=== PATIENT | male | born 1995 | race Caucasian/White ===

== ENCOUNTER 2020-12-24 14:46 | Emergency (ER) | payer SELFPAY ==
[~2020-12-24] VITALS: Ht 185.4 cm; Wt 78.3 kg
[2020-12-24 16:05] LABS: BASO % 0 % (0-3); EOS # 0.1 x10^3/uL (0.0-0.7); EOS % 1 % (0-3); HEMATOCRIT 44.3 % (39.0-53.0); HEMOGLOBIN 14.8 g/dL (13.0-17.5); LYMPH # 1.1 x10^3/uL (1.0-4.8); LYMPH % 14 % (24-48); MEAN CORPUSCULAR HEMOGLOBIN 31 pg (25-35); MEAN CORPUSCULAR HGB CONC 34 g/dL (31-37); MEAN CORPUSCULAR VOLUME 94 fL (79-100); MONO # 0.8 x10^3/uL (0.0-1.1); MONO % 10 % (0-9); NEUT # 6.1 x10^3uL (1.8-7.7); NEUT % 75 % (31-73); PLATELET COUNT 222 x10^3/uL (140-400); RED BLOOD COUNT 4.74 x10^6/uL (4.30-5.70); RED CELL DISTRIBUTION WIDTH 13.1 % (11.5-14.5); WHITE BLOOD COUNT 8.2 x10^3/uL (4.0-11.0)
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
[2020-12-24 16:10] LABS: CALCIUM 9.5 mg/dL (8.5-10.1); CREATININE 0.9 mg/dL (0.7-1.3); GFR 101.2; POTASSIUM 3.6 mmol/L (3.5-5.1)
--- NOTE | 2020-12-24 16:14 | RAD ---
Exam: CT abdomen and pelvis without contrast INDICATION: Left-sided abdominal pain TECHNIQUE: Sequential axial images through the abdomen and pelvis obtained without IV contrast. Sagit len and coronal reformatted images were reconstructed from the axial data and reviewed. Comparisons: None FINDINGS: Heart size is normal. No pericardial effusion. Visualized lung bases are clear. No pleural effusion. Evaluation of the solid organs limited secondary to noncontrast technique. Liver, spleen, pancreas, gallbladder and adrenals are unremarkable. No perinephric inflammation or hydronephrosis. No renal or ureteral calculi are identified. Bladder is distended and appears thin-walled. Prostate is not enlarged. Large and small bowel are unremarkable. Appendix is normal. No free intra-abdominal air or fluid. No obstruction. Abdominal aorta has a normal course and caliber. No enlarged intra-abdominal lymph nodes are identified. No suspicious osseous lesions or acute fractures. No acute process identified within the abdomen or p evan. IMPRESSION: No acute process identified within the abdomen or pelvis. Exposure: One or more of the following in the visualized dose reduction techniques were utilized for this examination: 1. Automated exposure control 2. Adjustment of the MA and/or KV according to patient size 3. Use of iterative of reconstructive technique Electronically signed by: Birgit Tomas MD (12/24/2020 4:11 PM) [facility]
[2020-12-24 16:56] VITALS: BP 120/89
[2020-12-24 17:09] LABS: BARBITURATES NEG (NEG); BENZODIAZEPINES NEG (NEG); CANNABINOIDS POS (NEG); COCAINE POS (NEG); METHADONE NEG (NEG); OPIATES NEG (NEG); PHENCYCLIDINE NEG (NEG)
[2020-12-24 17:16] LABS: AMPHETAMINE/METHAMPHETAMINE POS (NEG)
[2020-12-24 17:41] LABS: CLARITY,URINE CLEAR; COLOR,URINE AMBER; GLUCOSE,URINE NEG (NEG)
[2020-12-24 17:42] LABS: BACTERIA,URINE 0 /HPF (0-FEW); BILIRUBIN,URINE SMALL (NEG); NITRITE,URINE NEG (NEG); RBC,URINE 0 /HPF (0-2); WBC,URINE 0 /HPF (0-4)
== END 2020-12-24 17:28 | disposition home or self-care (01) ==
LOC: ER 14:46
DX: Z71.1 Person with feared health complaint in whom no diagnosis is made (principal); B83.9 Helminthiasis, unspecified; F15.10 Other stimulant abuse, uncomplicated; R10.32 Left lower quadrant pain; Z88.5 Allergy status to narcotic agent
CPT/HCPCS: 36415; 74176; 80048; 80307; 81001; 85025; 99284

== ENCOUNTER 2021-12-09 18:30 | Emergency (ER) | payer SELFPAY ==
[~2021-12-09] VITALS: Ht 193 cm; Wt 80.0 kg
[2021-12-09 18:50] VITALS: BP 143/85
[2021-12-09] MEDS ORDERED: SULF1TAB24 PO (19:40)
--- NOTE | 2021-12-09 19:41 | PHYS DOC ---
Past History Past Medical History: No Pertinent History (ISAIAH ANGELES APRN) Past Surgical History: Other Additional Past Surgical Histo: lung, heart and spine surgery from [facility] in 2016 (ISAIAH ANGELES APRN) Alcohol Use: None (ISAIAH ANGELES APRN) General Adult EDM: Chief Complaint: EARACHE/EAR PAIN HPI: HPI: Patient is a 26-year-old male who presents with abscess behind his right ear. Patient states it started about 3 days ago. Patient reports tenderness to his ear and down the side of his neck. Denies taking anything for pain at home. Afebrile. Denies medical history. (ISAIAH ANGELES APRN) Review of Systems: Review of Systems: ROS At least 10 ROS systems have been reviewed and are negative except as documented in the HPI. General: Negative except as outlined in HPI above. Skin: Negative except as outlined in HPI above. HEENT: Negative except as outlined in HPI above. Neck: Negative except as outlined in HPI above. Respiratory: Negative except as outlined in HPI above.. Cardiovascular: Negative except as outlined in HPI above. Abdomen: Negative except as outlined in HPI above. : Negative except as outlined in HPI above. Back/MSK: Negative except as outlined in HPI above. Neuro: Negative except as outlined in HPI above. Psych: Negative except as outlined in HPI above. (ISAIAH ANGELES APRN) Allergies: Allergies: Allergies Coded Allergies Type Severity Reaction Last Updated Verified morphine Allergy Unknown 12/09/21 Yes (ISAIAH ANGELES APRN) Physical Exam: PE: Constitutional: Well developed, well nourished, no acute distress, non-toxic appearance. [] HENT: Normocephalic, atraumatic, bilateral external ears normal, oropharynx moist, no oral exudates, nose normal. [] Eyes: PERRLA, EOMI, conjunctiva normal, no discharge. [] Neck: Normal range of motion, no tenderness, supple, no stridor. [] Cardiovascular:Heart rate regular rhythm, no murmur [] Lungs & Thorax: Bilateral breath sounds clear to auscultation [] Abdomen: Bowel sounds normal, soft, no tenderness, no masses, no pulsatile masses. [] Skin: Red, swollen, abscess behind right ear Back: No tenderness, no CVA tenderness. [] Extremities: No tenderness, no cyanosis, no clubbing, ROM intact, no edema. [] Neurologic: Alert and oriented X 3, normal motor function, normal sensory function, no focal deficits noted. [] Psychologic: Affect normal, judgement normal, mood normal. [] (ISAIAH ANGELES APRN) Current Patient Data: Vital Signs: Vital Signs Date Time Temp Pulse Resp B/P (MAP) Pulse Ox O2 Delivery O2 Flow Rate FiO2 12/09/21 18:50 98.5 86 16 143/85 (104) 98 (ISAIAH ANGELES APRN) EKG: EKG: [] (ISAIAH ANGELES APRN) Radiology/Procedures: Radiology/Procedures: [] (ISAIAH ANGELES APRN) Heart Score: C/O Chest Pain: No Risk Factors: Risk Factors: DM, Current or recent (<one month) smoker, HTN, HLP, family history of CAD, obesity. Risk Scores: Score 0 - 3: 2.5% MACE over next 6 weeks - Discharge Home Score 4 - 6: 20.3% MACE over next 6 weeks - Admit for Clinical Observation Score 7 - 10: 72.7% MACE over next 6 weeks - Early Invasive Strategies (ISAIAH ANGELES APRN) Course & Med Decision Making: Course & Med Decision Making Pertinent Labs and Imaging studies reviewed. (See chart for details) [] 26-year-old male presents with abscess behind right ear. Patient states that he noticed it 3 days ago. Very tender to the touch. Patient states he has never had an abscess before. Work-up in the ER consisted of I&D, wound culture. Patient started on Bactrim. Patient given first dose while in the ER. Patient given medication for pain. Advised patient needs to follow-up in 48 hours with ENT and have wound checked. I gave the patient contact information for ENT. Ibuprofen and Tylenol at home for discomfort. Discussed return precautions. (ISAIAH ANGELES APRN) Course & Med Decision Making I was the Attending physician on the above date of service of this patient. This patient was evaluated, examined, treated, and dispositioned from the emergency department by the mid-level practitioner. I reviewed need for incision and drainage of ear abscess with recommendations for close outpatient ENT follow-up given location Electronically signed, Ramiro Darling DO (RAMIRO DARLING DO) Dragon Disclaimer: Dhruv Disclaimer: This electronic medical record was generated, in whole or in part, using a voice recognition dictation system. (ISAIAH ANGELES APRN) Departure Departure: Impression: Primary Impression: Abscess Disposition: HOME / SELF CARE / HOMELESS Condition: STABLE Referrals: PCP,CHASITY (PCP) WILMAN ROBERTO DO Patient Instructions: Abscess, Care After Additional Instructions: You were seen in the emergency room for an abscess behind your ear. I am starting you on an antibiotic and gave your first dose while in the ER. Make sure you take this antibiotic in full and as directed to avoid infection. Ibuprofen and Tylenol for discomfort. I am including the ENTs phone number I want you to call tomorrow make a follow-up appointment for 48 hours to have the wound checked. Trying to keep the wound clean and dry.. Return to the emergency room with worsening symptoms or concerns EMERGENCY DEPARTMENT GENERAL DISCHARGE INSTRUCTIONS Thank you for coming to [facility] ([facility]) today and trusting us with you care. We trust that you had a positivie experience in our Emergency Department. If you wish to speak to the department management, you may call the director at [phone]. YOUR FOLLOW UP INSTRUCTIONS ARE FOLLOWS: 1. Do you have a private Doctor? If you do not have a private doctor, please ask for a resource list of physicians or clinics that may be able to assist you with follow up care. 2. The Emergency Physician has interpreted your x-rays. The X-Ray specialist will also review them. If there is a change in the findings, you will be notified in 48 hours when at all possible. 3. A lab test or culture has been done, your results will be reviewed and you will be notified if you need a change in treatment. ADDITIONAL INSTRUCTIONS AND INFORMATION: 1. Your care today has been supervised by a physician who is specially trained in emergency care. Many problems require more than one evaluation for a complete diagnosis and treatment. We recommend that you schedule your follow up appointment as recommended to ensure complete treatment of you illness or injury. If you are unable to obtain follow up care and continue to have a problem, or if your condition worsens, we recommend that you return to the ED. 2. We are not able to safely determine your condition over the phone nor are we able to give sound medical advice over the phone. For these safety reasons, if you call for medical advice we will ask you to come to the ED for further evaluation. 3. If you have any questions regarding these discharge instructions please call the ED at [phone]. SAFETY INFORMATION: In the interest of safety, wellness, and injury prevention; we encourage you to wear your sealbelt, if you smoke; quite smoking, and we encourage family to use a protective helmet for bicycling and other sporting events that present an increased risk for head injury. IF YOUR SYMPTOMS WORSEN OR NEW SYMPTOMS DEVELOP, OR YOU HAVE CONCERNS ABOUT YOUR CONDITION; OR IF YOUR CONDITION WORSENS WHILE YOU ARE WAITING FOR YOUR FOLLOW UP APPOINTMENT; EITHER CONTACT YOUR PRIMARY CARE DOCTOR, THE PHYSICIAN WHOSE NAME AND NUMBER YOU WERE GIVEN, OR RETURN TO THE ED IMMEDIATELY. Scripts Sulfamethoxazole/Trimethoprim (BACTRIM DS TABLET) 1 Each Tablet 1 TAB PO BID for abscess for 7 Days, #14 TAB 0 Refills Prov: ISAIAH ANGELES APRN 12/09/21 ISAIAH ANGELES APRN Dec 09, 2021 19:40 RAMIRO DARLING DO Dec 11, 2021 06:06
[2021-12-09] MEDS ORDERED: IBUPROFEN 600 MG TABLET. PO ONE (19:45)
[2021-12-09] MEDS ORDERED: SMZ/TMP 800/160MG TABLET. PO ONE (20:15)
== END 2021-12-09 19:52 | disposition home or self-care (01) ==
LOC: ER 18:30
DX: H60.01 Abscess of right external ear (principal); Z88.5 Allergy status to narcotic agent
CPT/HCPCS: 87071; 99283